=== PATIENT | male | born 1940 | race Caucasian/White ===

== ENCOUNTER 2018-11-29 17:57 | Emergency (ER) | payer MEDICARE, BC, SELFPAY ==
[2018-11-29 17:59] VITALS: BP 121/69; PULSE 56; RESP 16; TEMP 36.8; O2SAT 97; BMI 25.5
--- NOTE | 2018-11-29 18:51 | ED.VIS.GEN ---
History of Present Illness Chief Complaint: Bite Informant: Patient Onset: Today Context: - - suddenly noticed a tick in the affected area Quality: itchy Location: right arm posteriorly Current Severity: Mild Maximum Severity: Mild Worsened by: nothing Relieved by: nothing Associated Symptoms: none Narrative: Patient states he has [place] and had some ticks from [place], he was there 2 days ago. There were 2 ticks on him that he removed soon after he left the [place], but found another today which is 2 days later on his right arm when he noticed it was itching. His daughter removed it. He has no other symptoms. - Past Medical History (1) HTN (hypertension) Status: Chronic (2) Hyperlipidemia Status: Chronic Past Medical History - Allergies and Home Meds Allergies/Adverse Reactions: Allergies No Known Allergies Allergy (Verified 11/29/18 18:01) Primary Care Physician: Kp Levy MD [Primary Care Provider] - Smoking Status: Never smoker Drugs: None Review of Systems General: Denies: Chills, Fever Skin: Reports: Wounds - red area around RUE tick bite. Denies: Rash Hematologic: Reports: Easy bruising, Easy bleeding Physical Exam Vital Signs/Narrative: Vital Signs Temp Pulse Resp BP Pulse Ox 11/29/18 17:59 98.3 F 56 L 16 121/69 H 97 Inital Vital Signs reviewed: Yes General: Well nourished, Well developed, No Acute Distress Head: Normocephalic, Atraumatic ENT: Moist mucous membranes, No rhinorrhea Neck: Supple, Nontender, No lymphadenopathy Extremities: Nontender, No edema Skin: Normal color, - - single bite adelita posterior right upper arm w/ nontender wheal surrounding it, approx 2cm. no discharge expressible. looked at lesion w/ magnifier; no residual tick parts seen. Neurological: Alert, Oriented x3, Cranial nerves II-XII grossly intact, Normal Strength, Normal Sensation, Normal Gait Psychological: Normal affect, Normal Mood Diagnostic/Tx/Re-eval - Medical Decision Making Given a single dose of doxycycline 200 mg for Lyme disease prophylaxis, which is endemic in [place] ticks in this region. We do not see other tickborne illnesses commonly here. Given appropriate discharge instructions regarding looking for ticks when he is [place], which he states he plans to be. Also bacitracin with Band-Aid placed over the lesion. ED Disposition - Plan for ED Patient: Disposition: Home or Assisted Living Diagnosis: Tick bite of right upper arm Instructions: ED Bite Tick Abx Tx, Preventing Lyme Disease Referrals: Kp Levy MD [Primary Care Provider] - As Needed
[2018-11-29] MEDS: Doxycycline 100 MG CAPSULE 200 MG PO (19:10)
--- NOTE | 2018-11-29 19:11 | ED.RN ---
DISCHARGE INSTRUCTIONS GIVEN TO AND REVIEWED WITH PATIENT, PATIENT DENIES QUESTIONS OR CONCERNS AND VOICES UNDERSTANDING OF DISCHARGE INSTRUCTIONS. PT AMBULATES OUT OF ROOM WITHOUT DIFFICULTY.
== END 2018-11-29 19:12 | disposition home or self-care (01) ==
PROVIDERS: Emergency Provider Emergency Medicine; Family Provider Family Medicine; PCP Family Medicine
DX: S40.861A Insect bite (nonvenomous) of right upper arm, initial encounter (principal); W57.XXXA Bitten or stung by nonvenomous insect and other nonvenomous arthropods, initial encounter; Y93.89 Activity, other specified; Y92.828 Other wilderness area as the place of occurrence of the external cause
CPT/HCPCS: 99283

== ENCOUNTER 2020-10-07 16:21 | Outpatient (RCR) | payer MEDICARE, BC, SELFPAY ==
[2020-10-07] MEDS: COVID-19 VACC, MRNA(PFIZER)/PF 30 MCG/0.3 ML SYRINGE IM (14:47)
[2020-10-28] MEDS: COVID-19 VACC, MRNA(PFIZER)/PF 30 MCG/0.3 ML SYRINGE IM (14:36)
== END 2021-01-11 23:59 ==
LOC: IMMUN 16:21
PROVIDERS: PCP Family Medicine; Visit Provider Family Medicine
DX: Z23 Encounter for immunization (principal)
CPT/HCPCS: 0001A; 0002A; 91300